=== PATIENT | female | born 1990 | race Caucasian/White ===

== ENCOUNTER 2018-06-04 20:36 | Emergency (ER) | payer OTHER ==
[2018-06-04 21:23] LABS: Absolute Lymphocytes (CBC) 3.4 K/uL (0.7-4.9); Absolute Monocytes 0.7 K/uL (0.1-1.3); Absolute Neutrophil 3.4 K/uL (1.8-8.0); Basophils % 0.7 % (0-1.3); Eosinophils % 3.9 % (0-4.4); Hematocrit 40.7 % (36.0-45.0); MPV 7.9 fL (7.6-11.3); Monocytes % 8.5 % (3.3-12.3); RBC Red Blood Cell Count 4.03 M/uL (3.86-4.86)
[2018-06-04] MEDS ORDERED: ONDANSETRON 4 MG/2 ML VIAL ONE (21:55)
[2018-06-04] MEDS ORDERED: MORPHINE 4 MG/ML SYR ONE (21:55)
[2018-06-04 22:04] LABS: ALT/SGPT 15 U/L (12-78); AST/SGOT 11 U/L (15-37); Albumin 3.5 g/dL (3.4-5.0); Alkaline Phosphatase 55 U/L (45-117); BUN Blood Urea Nitrogen 12 mg/dL (7-18); Bicarbonate 22 mmol/L (21-32); Bilirubin Direct < 0.1 mg/dL (0-0.2); Bilirubin Total 0.1 mg/dL (0.2-1.0); Glucose Level 67 mg/dL (74-106); Lipase 217 U/L (73-393); Potassium 3.6 mmol/L (3.5-5.1); Protein, Total 7.1 g/dL (6.4-8.2); Sodium Level 142 mmol/L (136-145)
[2018-06-04 22:35] LABS: Urine Blood 3+ (NEG); Urine Glucose NEGATIVE (NEG); Urine Protein 1+ (NEG); Urine pH 6.5 (5.0-7.0)
[2018-06-04 23:00] LABS: Troponin (Emerg Dept Use Only) < 0.02 ng/mL (0.0-0.045)
--- NOTE | 2018-06-05 00:50 | ER ---
Nurse's Notes [facility] Name: Bhakti Gómez Age: 28 yrs Sex: Female : 1990 Arrival Date: 06/04/2018 Time: 20:38 Bed 24 Private MD: Diagnosis: Dysuria;Chest pain, unspecified Presentation: 06/04 20:46 Presenting complaint: Patient states: burning with urination, blood in urine since ak1 yesterday. pt c/o lower abd pain and lower back pain X2 weeks [employer]. pt c/o nausea today. Transition of care: patient was not received from another setting of care. Onset of symptoms is unknown. Risk Assessment: Do you want to hurt yourself or someone else? Patient reports no desire to harm self or others. Initial Sepsis Screen:. Care prior to arrival: None. 20:46 Method Of Arrival: Ambulatory ak 20:46 Acuity: ANGELICA 3 ak1 22:28 Initial Sepsis Screen: Does the patient meet any 2 criteria? No. Patient's initial mg2 sepsis screen is negative. Does the patient have a suspected source of infection? No. Patient's initial sepsis screen is negative. Triage Assessment: 20:48 General: Appears in no apparent distress. Behavior is calm, cooperative. 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 - Social history:: Smoking status: Patient uses tobacco products, smokes one pack cigarettes per day. - Ebola Screening: : No symptoms or risks identified at this time. Screenin:53 Abuse screen: Denies threats or abuse. Denies injuries from another. Nutritional mg2 screening: No deficits noted. Tuberculosis screening: No symptoms or risk factors identified. Fall Risk IV access (20 points). Assessment: 20:51 General: Appears in no apparent distress. comfortable, Behavior is calm, cooperative. mg2 Pain: Complains of pain in abdomen Pain radiates to back Pain currently is 6 out of 10 on a pain scale. Quality of pain is described as aching, Pain began gradually, Is intermittent. Neuro: Level of Consciousness is awake, alert, obeys commands, Oriented to person, place, time, situation. Cardiovascular: Capillary refill < 3 seconds Patient's skin is warm and dry. Respiratory: Airway is patent Respiratory effort is even, unlabored, Respiratory pattern is regular, symmetrical. GI: Bowel sounds present X 4 quads. Abd is soft and non tender. : Reports burning with urination, since 2 weeks ago pain in bilateral in suprapubic area with urination. : Reports. EENT: No signs and/or symptoms were reported regarding the EENT system. Derm: Skin is intact, is healthy with good turgor, Skin is pink, warm \T\ dry. normal. Musculoskeletal: Circulation, motion, and sensation intact. Capillary refill < 3 seconds. 22:29 Reassessment: patient complained chest pain. provider informed. mg2 06/05 00:58 Reassessment: Patient states feeling better. mg2 Vital Signs: 06/04 20:46 BP 115 / 58; Pulse 79; Resp 18; Temp 98.6(O); Pulse Ox 100% on R/A; Weight 97.98 kg ak1 (R); Height 5 ft. 2 in. (157.48 cm) (R); Pain 6/10; 22:28 BP 113 / 80; Pulse 59; Resp 18; Pulse Ox 100% on R/A; Pain 4/10; mg2 06/05 00:57 BP 100 / 65; Pulse 65; Resp 18; Pulse Ox 100% on R/A; Pain 2/10; mg2 06/04 20:46 Body Mass Index 39.51 (97.98 kg, 157.48 cm) ak1 ED Course: 06/04 20:38 Patient arrived in ED. am2 20:43 Robert Shaw PA is PHCP. [facility] 20:43 Francois Tinoco MD is Attending Physician. [facility] 20:44 Milo Pandey, BELKIS is Primary Nurse. mg2 20:47 Triage completed. ak1 20:48 Arm band placed on Patient placed in an exam room, on a stretcher, Patient notified of ak1 wait time. 20:53 No provider procedures requiring assistance completed. Inserted saline lock: 20 gauge mg2 in right antecubital area, using aseptic technique. Blood collected. 20:58 Radiology exam delayed due to lab results not completed at this time. (BUN/Creatinine) vm2 test not completed at this time. 22:31 Patient has correct armband on for positive identification. mg2 23:02 CT completed. Patient tolerated procedure well. Patient moved to CT. Patient moved back mn from CT. 23:10 CT Abd/Pelvis - W/Contrast In Process Unspecified. EDMS 06/05 00:49 Shahriar Casas MD is Referral Physician. [facility] 00:58 IV discontinued, intact, bleeding controlled, No redness/swelling at site. Pressure mg2 dressing applied. Administered Medications: 06/04 21:52 Drug: morphine 4 mg Route: IVP; Site: right antecubital; mg2 23:18 Follow up: Response: No adverse reaction; Marked relief of symptoms mg2 21:52 Drug: Zofran 4 mg Route: IVP; Site: right antecubital; mg2 23:18 Follow up: Response: No adverse reaction; Marked relief of symptoms mg2 Outcome: 06/05 00:49 Discharge ordered by MD. [facility] 00:58 Discharged to home ambulatory, with family. mg2 00:58 Condition: stable 00:58 Discharge instructions given to patient, family, Instructed on discharge instructions, follow up and referral plans. medication usage, Demonstrated understanding of instructions, follow-up care, medications, Prescriptions given X 1. 00:59 Patient left the ED. mg2 Signatures: Dispatcher [employer] EDID Robert Shaw PA PA jmm Krenek, Amber, RN RN ak1 Trino Phillip Amanda am2 McGuire, Victoria 2 Milo Pandey RN RN mg2
--- NOTE | 2018-06-05 00:50 | EDPHYS ---
Physician Documentation [facility] Name: Bhakti Gómez Age: 28 yrs Sex: Female : 1990 Arrival Date: 06/04/2018 Time: 20:38 Bed 24 Private MD: ED Physician Francois Tinoco HPI: 06/04 20:46 This 28 yrs old Female presents to ER via Ambulatory with complaints of jmm Abdominal Pain - low. 20:46 The patient presents with abdominal pain in the lower abdomen. Onset: The jmm symptoms/episode began/occurred gradually, 1 week(s) ago. The symptoms radiate to back. The symptoms are described as achy. This is a 28 year old female with a history of seizures that presents to the ED with complaints of lower abdominal pain, which radiates to her lower back. Denies fever, denies vomiting, denies diarrhea. Patient also complains of pain on urination. . 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 - Social history:: Smoking status: Patient uses tobacco products, smokes one pack cigarettes per day. - Ebola Screening: : No symptoms or risks identified at this time. ROS: 20:46 Constitutional: Negative for fever, chills, and weight loss, Cardiovascular: Negative jmm for chest pain, palpitations, and edema, Respiratory: Negative for shortness of breath, cough, wheezing, and pleuritic chest pain. 20:46 Abdomen/GI: Positive for abdominal pain. 20:46 : Positive for urinary symptoms. 20:46 All other systems are negative. Exam: 20:46 Constitutional: This is a well developed, well nourished patient who is awake, alert, jmm and in no acute distress. Head/Face: atraumatic. Eyes: EOMI, no conjunctival erythema appreciated ENT: Moist Mucus Membranes Neck: Trachea midline, Supple Chest/axilla: Normal chest wall appearance and motion. Cardiovascular: Regular rate and rhythm. No edema appreciated Respiratory: Normal respirations, no respiratory distress appreciated 20:46 Abdomen/GI: Inspection: abdomen appears normal, Bowel sounds: normal, Palpation: soft, mild abdominal tenderness, in the suprapubic area. 20:46 Back: CVA tenderness, is absent. 20:46 Musculoskeletal/extremity: ROM: intact in all extremities. 20:46 Skin: Appearance: Color: normal in color. 20:46 Neuro: Orientation: is normal, Mentation: is normal, Memory: is normal. 20:46 Psych: Behavior/mood is pleasant, cooperative. Vital Signs: 20:46 BP 115 / 58; Pulse 79; Resp 18; Temp 98.6(O); Pulse Ox 100% on R/A; Weight 97.98 kg ak1 (R); Height 5 ft. 2 in. (157.48 cm) (R); Pain 6/10; 22:28 BP 113 / 80; Pulse 59; Resp 18; Pulse Ox 100% on R/A; Pain 4/10; mg2 06/05 00:57 BP 100 / 65; Pulse 65; Resp 18; Pulse Ox 100% on R/A; Pain 2/10; mg2 06/04 20:46 Body Mass Index 39.51 (97.98 kg, 157.48 cm) ak1 MDM: 06/04 20:47 Patient medically screened. [facility] 06/05 00:45 Data reviewed: vital signs, nurses notes, lab test result(s), radiologic studies, CT [facility] scan. Counseling: I had a detailed discussion with the patient and/or guardian regarding: the historical points, exam findings, and any diagnostic results supporting the discharge/admit diagnosis, lab results, radiology results, the need for outpatient follow up, to return to the emergency department if symptoms worsen or persist or if there are any questions or concerns that arise at home. ED course: Patient is alert and non toxic in appearance. Due to dysuria patient will be prescribed oral antibiotics. Patient had an episode of chest pain after administration of morphine. EKG revealed t wave inversions. Repeat cardiac enzymes are negative. The patient's chest pain has resolved. I advised the patient to follow up with cardiology and otherwise was given strict return precautions. Patient understood and agrees with the plan of care. . 06/04 20:46 Order name: Basic Metabolic Panel; Complete Time: 23:10 mg2 06/04 20:46 Order name: CBC with Diff; Complete Time: 22:04 [facility] 06/04 20:46 Order name: Creatinine for Radiology; Complete Time: 22:09 [facility] 06/04 20:46 Order name: Hepatic Function; Complete Time: 23:10 [facility] 06/04 20:46 Order name: Lipase; Complete Time: 23:10 [facility] 06/04 21:10 Order name: Urine Dipstick--Ancillary (enter results); Complete Time: 22:43 [facility] 06/04 20:46 Order name: IV Saline Lock; Complete Time: 20:54 [facility] 06/04 20:53 Order name: CT Abd/Pelvis - W/Contrast [facility] 06/04 21:10 Order name: Urine --Ancillary (enter results); Complete Time: 22:43 [facility] 06/04 22:37 Order name: Troponin (Emerg Dept Use Only); Complete Time: 23:10 [facility] 06/04 23:41 Order name: Troponin (emerg Dept Use Only); Complete Time: 00:26 [facility] 06/04 20:46 Order name: Labs collected and sent; Complete Time: 20:54 [facility] 06/04 20:46 Order name: Urine Dipstick-Ancillary (obtain specimen); Complete Time: 21:18 [facility] 06/04 20:54 Order name: Urine Test (obtain specimen); Complete Time: 21:18 [facility] 06/04 22:08 Order name: EKG - Nurse/Tech; Complete Time: 22:25 [facility] 06/04 23:41 Order name: EKG - Nurse/Tech; Complete Time: 23:52 [facility] Administered Medications: 06/04 21:52 Drug: morphine 4 mg Route: IVP; Site: right antecubital; mg2 23:18 Follow up: Response: No adverse reaction; Marked relief of symptoms mg2 21:52 Drug: Zofran 4 mg Route: IVP; Site: right antecubital; mg2 23:18 Follow up: Response: No adverse reaction; Marked relief of symptoms mg2 Disposition: 06/05 02:41 Co-signature as Attending Physician, Francois Tinoco MD. rn Disposition: 06/05/18 00:49 Discharged to Home. Impression: Dysuria, Chest pain, unspecified. - Condition is Stable. - Discharge Instructions: Nonspecific Chest Pain, Dysuria. - Prescriptions for Cephalexin 500 mg Oral Capsule - take 1 capsule by ORAL route every 12 hours for 10 days; 20 capsule. - Medication Reconciliation Form, Thank You Letter, Antibiotic Education, Prescription Opioid Use form. - Follow up: Shahriar Casas MD; When: 2 - 3 days; Reason: Recheck today's complaints, Continuance of care, Re-evaluation by your physician. Signatures: Dispatcher [employer] [facility] Robert Shaw PA PA jmm Nieto, Roman, MD MD rn Laura Read RN RN ak1 Milo Pandey RN RN mg2 Corrections: (The following items were deleted from the chart) 06/04 22:37 22:09 TROPONIN (EMERG DEPT USE ONLY)+[email or web address] ordered. [facility] 06/05 00:59 00:49 06/05/2018 00:49 Discharged to Home. Impression: Dysuria; Chest pain, mg2 unspecified. Condition is Stable. Forms are Medication Reconciliation Form, Thank You Letter, Antibiotic Education, Prescription Opioid Use. Follow up: Shahriar Casas; When: 2 - 3 days; Reason: Recheck today's complaints, Continuance of care, Re-evaluation by your physician. joya
--- NOTE | 2018-06-05 09:15 | EKG ---
Test Date: 2018-06-04 Test Time: 22:13:25 Starting Gate Driver: MG MEASUREMENT RESULTS: Intervals: Rate: 61 MI: 108 QRSD: 86 QT: 426 QTc: 428 [place]: P: 44 MI: 108 QRS: 70 T: 60 INTERPRETIVE STATEMENTS: Sinus rhythm with short MI Otherwise normal ECG No previous ECG available for comparison Electronically Signed On 06-05-18 09:14:53 CDT by Ramin Galloway
--- NOTE | 2018-06-05 09:15 | EKG ---
Test Date: 2018-06-04 Test Time: 23:44:04 Commercial Loan Collection Officer: MEASUREMENT RESULTS: Intervals: Rate: 63 SD: 130 QRSD: 88 QT: 416 QTc: 425 [place]: P: 24 SD: 130 QRS: 75 T: 65 INTERPRETIVE STATEMENTS: Sinus rhythm with marked sinus arrhythmia T wave abnormality, consider anterior ischemia Abnormal ECG Compared to ECG 06/04/2018 22:13:25 Short SD interval no longer present T-wave abnormality still present Possible ischemia still present Electronically Signed On 06-05-18 09:13:59 CDT by Ramin Galloway
--- NOTE | 2018-06-05 13:07 | RAD REPORT ---
EXAM DESCRIPTION: CT ABDOMEN PELVIS WITH IV CONTRAST CLINICAL HISTORY: Lower abdominal pain. COMPARISON: None. TECHNIQUE: CT scan of the abdomen and pelvis with IV contrast. This exam was performed according to our departmental dose-optimization program, which includes automated exposure control, adjustment of the mA and/or kV according to patient size and/or use of iterative reconstruction technique. FINDINGS: The lung bases are clear. No pleural or pericardial effusions. There is no hiatal hernia. There has been a prior cholecystectomy. The liver, spleen, pancreas, adrenal glands, and kidneys are normal without hydronephrosis or obstructing urinary stones. The pelvic organs are also normal. No small bowel obstruction. The appendix is normal. There is no evidence of diverticulitis. No intrap eritoneal free fluid or free air is identified. The aorta is normal caliber. No acute osseous findings are appreciated. No body wall hernia is apprec iated. IMPRESSION: No acute abdominal or pelvic pathology. Electronically signed by: Ramone Jaquez MD 06/04/2018 11:21 PM CDT Due to temporary technical issues with the PACS/Fluency reporting system, reports are being signed by the in house radiologist as a courtesy to ensure prompt reporting. The interpreting radiologist is f ully responsible for the content of the report.
== END 2018-06-05 00:59 | disposition home or self-care (01) ==
LOC: ER 20:36
DX: R30.0 Dysuria (principal); R07.9 Chest pain, unspecified; G40.909 Epilepsy, unspecified, not intractable, without status epilepticus; F17.210 Nicotine dependence, cigarettes, uncomplicated
CPT/HCPCS: 36415; 74177; 80048; 80076; 81003; 81025; 83690; 84484; 85025; 93005; 96374; 96375; 99284; J2405; Q9967